=== PATIENT | male | born 1970 | race Caucasian/White ===

== ENCOUNTER → 2016-08-07 | Outpatient (CLI) | payer OTHER ==
[2016-08-07 12:10] LABS: CH 31.5; CHCM 35.9; HCT 45.7 % (39.0-53.0); HDW 3.12; HGB 15.9 gm/dL (13.0-17.5); MCH 30.6 pg (25.0-35.0); MCHC 34.7 g/dL (31.0-37.0); MCV 88.3 fL (80.0-100.0); Mean Platelet Volume 7.4; RBC 5.17 m/uL (4.30-5.90); RDW 13.5 % (11.5-15.5); WBC 11.1 k/uL (3.8-10.6)
[2016-08-07 12:40] LABS: Anion Gap 15 mmol/L; Blood Urea Nitrogen 8 mg/dL (9-20); Carbon Dioxide 27 mmol/L (22-30); Chloride 100 mmol/L (98-107); Non-African American GFR(MDRD) >60 (>60 ml/min/1.73 sqM); Potassium 3.7 mmol/L (3.5-5.1); Sodium 142 mmol/L (137-145)
== END | disposition home or self-care (01) ==
LOC: LABWHC1 11:40
PROVIDERS: ATTEND Internal Medicine Cardiovascular Disease
DX: R60.0 Localized edema (principal)
CPT/HCPCS: 36415; 80051; 82040; 82565; 83880; 84520; 85027

== ENCOUNTER 2016-10-15 08:39 | Observation (INO) | payer OTHER ==
[2016-10-15] MEDS ORDERED: SODIUM CHLORIDE 0.9% 1,000 ML IV ONE ×2 (09:48→12:31)
[2016-10-15 10:21] LABS: Basophils # (A) 0.1 k/uL (0-0.2); Basophils % (A) 1 %; CH 31.3; Eosinophils # (A) 0.1 k/uL (0-0.7); Eosinophils % (A) 1 %; HCT 40.4 % (39.0-53.0); HDW 2.94; HGB 13.9 gm/dL (13.0-17.5); Luc # (Auto) 0.08; Luc % (Auto) 1; Lymphocytes # (A) 1.9 k/uL (1.0-4.8); Lymphocytes % (A) 20 %; MCHC 34.5 g/dL (31.0-37.0); MCV 89.8 fL (80.0-100.0); Mean Platelet Volume 7.9; Monocytes # (A) 0.4 k/uL (0-1.0); Monocytes % (A) 4 %; Neutrophils # (A) 6.6 k/uL (1.3-7.7); Neutrophils % (A) 72 %; RDW 13.8 % (11.5-15.5); WBC 9.1 k/uL (3.8-10.6); WBC (Perox) 9.22
[2016-10-15 10:33] LABS: Glucose,Whole Blood 142 mg/dL (75-99)
[2016-10-15 10:34] LABS: ALT 38 U/L (21-72); AST 24 U/L (17-59); Alkaline Phosphatase 75 U/L (38-126); Anion Gap 7 mmol/L; Blood Urea Nitrogen 11 mg/dL (9-20); Calcium 8.9 mg/dL (8.4-10.2); Carbon Dioxide 31 mmol/L (22-30); Chloride 102 mmol/L (98-107); Glucose 152 mg/dL (74-99); Non-African American GFR(MDRD) >60 (>60 ml/min/1.73 sqM); Potassium 4.4 mmol/L (3.5-5.1); Sodium 140 mmol/L (137-145); Total Protein 6.8 g/dL (6.3-8.2)
[2016-10-15 10:36] LABS: Prothrombin Time 10.3 sec (9.0-12.0)
[2016-10-15 10:37] LABS: Partial Thromboplastin Time 22.4 sec (22.0-30.0)
--- NOTE | 2016-10-15 10:42 | ED ---
General Adult HPI <Lucas Cantu - Last Filed: 10/15/16 12:14> - General Source: patient, RN notes reviewed Mode of arrival: ambulatory Limitations: no limitations, altered mental status <Mark Feliz - Last Filed: 10/15/16 12:31> - General Chief complaint: Altered Mental Status Stated complaint: alter mental status Time Seen by Provider: 10/15/16 09:41 - History of Present Illness Initial comments: Patient is a 46-year-old male who presents emergency room today with multiple complaints. He does admit that he's had swelling to his lower extremities over the last few days. States this morning woke up and felt somewhat disoriented. States he felt lightheaded and dizzy. States he had numbness and tingling going to the left arm and hand. States he is experiencing some chest discomfort that he describes as sharp. Also admits to headache located in the front of his head and describes it as pressure. Patient states his symptoms were present when he woke up this morning along with feeling like is slurring some of his words. Family at bedside states not acting like himself. States symptoms have been constant over the last 2 hours. Denies any other complaints. Patient denies any recent fever, chills, shortness of breath, back pain, abdominal pain, nausea or vomiting, dysuria or hematuria, constipation or diarrhea, headaches or visual changes, or any other complaints. (Mark Feliz) - Related Data Home Medications Medication Instructions Recorded Confirmed Metoprolol Tartrate [Lopressor] 50 mg PO BID 11/15/14 10/15/16 NIFEdipine [NIFEdipine ER] 60 mg PO DAILY 11/15/14 10/15/16 Nitroglycerin Sl Tabs [Nitrostat] 0.4 mg SL DAILY PRN 11/15/14 10/15/16 Potassium Chloride [Klor-Con 10] 10 meq PO DAILY 11/15/14 10/15/16 metFORMIN HCL [metFORMIN HCL ER] 1,000 mg PO DAILY 11/15/14 10/15/16 Gabapentin [Neurontin] 900 mg PO TID 11/16/14 10/15/16 ALPRAZolam [Xanax] 0.5 mg PO BID 10/15/16 10/15/16 ARIPiprazole [Abilify] 5 mg PO DAILY 10/15/16 10/15/16 Furosemide [Lasix] 40 mg PO DAILY 10/15/16 10/15/16 HYDROcodone/APAP 7.5-325MG [[facility] 1 tab PO TID PRN 10/15/16 10/15/16 7.5-325] Hydrochlorothiazide [Hydrodiuril] 25 mg PO DAILY 10/15/16 10/15/16 Insulin Glargine [Lantus] 20 unit SQ HS 10/15/16 10/15/16 Losartan [Cozaar] 50 mg PO DAILY 10/15/16 10/15/16 Venlafaxine HCl [Effexor XR] 300 mg PO DAILY 10/15/16 10/15/16 Allergies Allergy/AdvReac Type Severity Reaction Status Date / Time duloxetine HCl Allergy Unknown Verified 10/15/16 10:32 [From [facility]] Review of Systems ROS Other: All systems not noted in ROS Statement are negative. <Lucas Cantu - Last Filed: 10/15/16 12:14> ROS Other: All systems not noted in ROS Statement are negative. <Mark Feliz - Last Filed: 10/15/16 12:31> ROS Statement: Those systems with pertinent positive or pertinent negative responses have been documented in the HPI. Past Medical History Past Medical History: Diabetes Mellitus, Hypertension Additional Past Medical History / Comment(s): aortic anyeurism, arthritis and degenerative issues in hips and kneees - see dr jurado for pain management, degenerative disc disease with chronic pain in lower back, sob with exertion, fatty liver, neuropathy History of Any Multi-Drug Resistant Organisms: None Reported Past Surgical History: Cholecystectomy, Hernia Repair Past Anesthesia/Blood Transfusion Reactions: No Reported Reaction Past Psychological History: Anxiety, Depression Smoking Status: Never smoker Past Alcohol Use History: None Reported Past Drug Use History: None Reported - Past Family History Mother History Unknown: Yes Family Medical History: Congestive Heart Failure (CHF), Coronary Artery Disease (CAD) <Mark Feliz - Last Filed: 10/15/16 12:31> General Exam <Lucas Cantu - Last Filed: 10/15/16 12:14> Limitations: no limitations, altered mental status <Mark Feliz - Last Filed: 10/15/16 12:31> - General Exam Comments Initial Comments: General: The patient is awake and alert, in no distress, and does not appear acutely ill. Eye: Pupils are equal, round and reactive to light, extra-ocular movements are intact. No nystagmus. There is normal conjunctiva bilaterally. No signs of icterus. Ears, nose, mouth and throat: There are moist mucous membranes and no oral lesions. Neck: The neck is supple, there is no tenderness or JVD. Cardiovascular: There is a regular rate and rhythm. No murmur, rub or gallop is appreciated. Respiratory: Lungs are clear to auscultation, respirations are non-labored, breath sounds are equal. No wheezes, stridor, rales, or rhonchi. Gastrointestinal: Soft, non-distended, non-tender abdomen without masses or organomegaly noted. There is no rebound or guarding present. No CVA tenderness. Bowel sounds are unremarkable. Musculoskeletal: Normal ROM, no tenderness. Strength 5/5. Sensation intact. Pulses equal bilaterally 2+. Neurological: A&O x 3. CN II-XII intact, There are no obvious motor or sensory deficits. Coordination appears grossly intact. Speech is normal. Skin: Skin is warm and dry and no rashes or lesions are noted. Psychiatric: Cooperative, appropriate mood & affect, normal judgment. (Mark Feliz) Medical Decision Making - Lab Data Result diagrams: 10/15/16 10:00 10/15/16 10:00 <Lucas Cantu - Last Filed: 10/15/16 12:14> - Lab Data Result diagrams: 10/15/16 10:00 10/15/16 10:00 <Mark Feliz - Last Filed: 10/15/16 12:31> - Medical Decision Making Patient reevaluated by myself, Dr. Cantu. Patient has been drowsy since he woke this morning. Patient complains of slurred speech. There may be a questionable amount of minimal slurred speech. Patient does complain of pedal edema. Patient has +1 and lateral pedal edema. No calf tenderness. Patient did have some mild chest discomfort earlier. No focal deficits on exam. Good strength throughout. Case discussed with Dr. adams, who will admit for Dr. Khan. Patient and family were updated. (Lucas Cantu) - Lab Data Lab Results 10/15/16 10/15/16 10/15/16 Range/Units 10:00 10:00 10:00 WBC 9.1 (3.8-10.6) k/uL RBC 4.50 (4.30-5.90) m/uL Hgb 13.9 (13.0-17.5) gm/dL Hct 40.4 (39.0-53.0) % MCV 89.8 (80.0-100.0) fL MCH 31.0 (25.0-35.0) pg MCHC 34.5 (31.0-37.0) g/dL RDW 13.8 (11.5-15.5) % Plt Count 184 (150-450) k/uL Neutrophils % 72 % Lymphocytes % 20 % Monocytes % 4 % Eosinophils % 1 % Basophils % 1 % Neutrophils # 6.6 (1.3-7.7) k/uL Lymphocytes # 1.9 (1.0-4.8) k/uL Monocytes # 0.4 (0-1.0) k/uL Eosinophils # 0.1 (0-0.7) k/uL Basophils # 0.1 (0-0.2) k/uL PT (9.0-12.0) sec INR (<1.1) APTT (22.0-30.0) sec D-Dimer (<0.60) mg/L FEU Sodium 140 (137-145) mmol/L Potassium 4.4 (3.5-5.1) mmol/L Chloride 102 (98-107) mmol/L Carbon Dioxide 31 H (22-30) mmol/L Anion Gap 7 mmol/L BUN 11 (9-20) mg/dL Creatinine 0.63 L (0.66-1.25) mg/dL Est GFR (MDRD) Af Amer >60 (>60 ml/min/1.73 sqM) Est GFR (MDRD) Non-Af >60 (>60 ml/min/1.73 sqM) Glucose 152 H (74-99) mg/dL POC Glucose (mg/dL) (75-99) mg/dL POC Glu [facility] ID Calcium 8.9 (8.4-10.2) mg/dL Total Bilirubin 1.0 (0.2-1.3) mg/dL AST 24 (17-59) U/L ALT 38 (21-72) U/L Alkaline Phosphatase 75 (38-126) U/L Ammonia (<30) umol/L Total Creatine Kinase 31 L (55-170) U/L CK-MB (CK-2) <0.2 (0.0-2.4) ng/mL CK-MB (CK-2) Rel Index Troponin I <0.012 (0.000-0.034) ng/mL Total Protein 6.8 (6.3-8.2) g/dL Albumin 3.9 (3.5-5.0) g/dL Urine Color Urine Appearance (Clear) Urine pH (5.0-8.0) Ur Specific Rohwer (1.001-1.035) Urine Protein (Negative) Urine Glucose (UA) (Negative) Urine Ketones (Negative) Urine Blood (Negative) Urine Nitrite (Negative) Urine Bilirubin (Negative) Urine Urobilinogen (<2.0) mg/dL Ur Leukocyte Esterase (Negative) 10/15/16 10/15/16 10/15/16 Range/Units 10:00 10:00 10:32 WBC (3.8-10.6) k/uL RBC (4.30-5.90) m/uL Hgb (13.0-17.5) gm/dL Hct (39.0-53.0) % MCV (80.0-100.0) fL MCH (25.0-35.0) pg MCHC (31.0-37.0) g/dL RDW (11.5-15.5) % Plt Count (150-450) k/uL Neutrophils % % Lymphocytes % % Monocytes % % Eosinophils % % Basophils % % Neutrophils # (1.3-7.7) k/uL Lymphocytes # (1.0-4.8) k/uL Monocytes # (0-1.0) k/uL Eosinophils # (0-0.7) k/uL Basophils # (0-0.2) k/uL PT 10.3 (9.0-12.0) sec INR 1.0 (<1.1) APTT 22.4 (22.0-30.0) sec D-Dimer 0.22 (<0.60) mg/L FEU Sodium (137-145) mmol/L Potassium (3.5-5.1) mmol/L Chloride (98-107) mmol/L Carbon Dioxide (22-30) mmol/L Anion Gap mmol/L BUN (9-20) mg/dL Creatinine (0.66-1.25) mg/dL Est GFR (MDRD) Af Amer (>60 ml/min/1.73 sqM) Est GFR (MDRD) Non-Af (>60 ml/min/1.73 sqM) Glucose (74-99) mg/dL POC Glucose (mg/dL) 142 H (75-99) mg/dL POC Glu [facility] ID [facility] Calcium (8.4-10.2) mg/dL Total Bilirubin (0.2-1.3) mg/dL AST (17-59) U/L ALT (21-72) U/L Alkaline Phosphatase (38-126) U/L Ammonia 25 (<30) umol/L Total Creatine Kinase (55-170) U/L CK-MB (CK-2) (0.0-2.4) ng/mL CK-MB (CK-2) Rel Index Troponin I (0.000-0.034) ng/mL Total Protein (6.3-8.2) g/dL Albumin (3.5-5.0) g/dL Urine Color Urine Appearance (Clear) Urine pH (5.0-8.0) Ur Specific Rohwer (1.001-1.035) Urine Protein (Negative) Urine Glucose (UA) (Negative) Urine Ketones (Negative) Urine Blood (Negative) Urine Nitrite (Negative) Urine Bilirubin (Negative) Urine Urobilinogen (<2.0) mg/dL Ur Leukocyte Esterase (Negative) 10/15/16 Range/Units 11:50 WBC (3.8-10.6) k/uL RBC (4.30-5.90) m/uL Hgb (13.0-17.5) gm/dL Hct (39.0-53.0) % MCV (80.0-100.0) fL MCH (25.0-35.0) pg MCHC (31.0-37.0) g/dL RDW (11.5-15.5) % Plt Count (150-450) k/uL Neutrophils % % Lymphocytes % % Monocytes % % Eosinophils % % Basophils % % Neutrophils # (1.3-7.7) k/uL Lymphocytes # (1.0-4.8) k/uL Monocytes # (0-1.0) k/uL Eosinophils # (0-0.7) k/uL Basophils # (0-0.2) k/uL PT (9.0-12.0) sec INR (<1.1) APTT (22.0-30.0) sec D-Dimer (<0.60) mg/L FEU Sodium (137-145) mmol/L Potassium (3.5-5.1) mmol/L Chloride (98-107) mmol/L Carbon Dioxide (22-30) mmol/L Anion Gap mmol/L BUN (9-20) mg/dL Creatinine (0.66-1.25) mg/dL Est GFR (MDRD) Af Amer (>60 ml/min/1.73 sqM) Est GFR (MDRD) Non-Af (>60 ml/min/1.73 sqM) Glucose (74-99) mg/dL POC Glucose (mg/dL) (75-99) mg/dL POC Glu [facility] ID Calcium (8.4-10.2) mg/dL Total Bilirubin (0.2-1.3) mg/dL AST (17-59) U/L ALT (21-72) U/L Alkaline Phosphatase (38-126) U/L Ammonia (<30) umol/L Total Creatine Kinase (55-170) U/L CK-MB (CK-2) (0.0-2.4) ng/mL CK-MB (CK-2) Rel Index Troponin I (0.000-0.034) ng/mL Total Protein (6.3-8.2) g/dL Albumin (3.5-5.0) g/dL Urine Color Yellow Urine Appearance Clear (Clear) Urine pH 6.0 (5.0-8.0) Ur Specific Rohwer 1.015 (1.001-1.035) Urine Protein Negative (Negative) Urine Glucose (UA) Negative (Negative) Urine Ketones Negative (Negative) Urine Blood Negative (Negative) Urine Nitrite Negative (Negative) Urine Bilirubin Negative (Negative) Urine Urobilinogen <2.0 (<2.0) mg/dL Ur Leukocyte Esterase Negative (Negative) Disposition <Lucas Cantu - Last Filed: 10/15/16 12:14> Time of Disposition: 12:01 <Mark Feliz - Last Filed: 10/15/16 12:31> Clinical Impression: Slurred speech, Paresthesia, Leg edema, Chest pain Disposition: ADMITTED IP TO THIS HOSP Condition: Stable
[2016-10-15 10:45] LABS: Creatine Kinase 31 U/L (55-170)
--- NOTE | 2016-10-15 10:50 | CT ---
EXAMINATION TYPE: CT brain wo con DATE OF EXAM: 10/15/2016 10:45 AM COMPARISON: NONE INDICATION: Patient not feeling well, having altered mental status DLP: 1050.9 mGycm, Automated exposure control for dose reduction was used. CONTRAST: None CT of the brain is performed utilizing 3 mm thick sections through the posterior fossa and 3 mm thick sections through the remaining calvarium. Study is performed within 24 hours of arrival to the hosp [facility]. No abnormal hyperdensity is present to suggest an acute intracranial hemorrhage. No mass lesion is evident. No acute infarcts are evident. Ventricles and sulci are appropriate for the patient age. Paranasal sinuses and mastoid air cells within the [id number] are clear. IMPRESSIONS: 1. Normal CT Brain
[2016-10-15 10:57] LABS: Creatine Kinase MB <0.2 ng/mL (0.0-2.4); Troponin I <0.012 ng/mL (0.000-0.034)
--- NOTE | 2016-10-15 11:00 | XR ---
EXAMINATION TYPE: XR chest 2V DATE OF EXAM: 10/15/2016 10:50 AM COMPARISON: 11/15/2014 TECHNIQUE: PA and lateral views submitted. HISTORY: Altered mental status FINDINGS: The lungs are clear and there is no pneumothorax, pleural effusion, or focal pneumonia. Heart is en larged and there is interstitial prominence. Appears stable. IMPRESSION: 1. Cardiomegaly with no definite acute interval change..
[2016-10-15 12:03] LABS: Appearance,Urine Clear (Clear); Bilirubin,Urine Negative (Negative); Glucose,Urine (UA) Negative (Negative); Ketones,Urine Negative (Negative); Leukocyte Esterase,Urine Negative (Negative); Nitrite,Urine Negative (Negative); Protein,Urine Negative (Negative); Specific Gravity,Urine 1.015 (1.001-1.035); UA Billing (MACRO vs. MICRO) CHEM; Urobilinogen,Urine <2.0 mg/dL (<2.0)
[2016-10-15] MEDS ORDERED: NITROGLYCERIN SL TABS 0.4 MG TAB SUBLINGUAL PRN (12:31)
[2016-10-15] MEDS ORDERED: HYDROcodone/APAP 7.5-325MG 1 EACH TAB PO ONE (12:35)
--- NOTE | 2016-10-15 13:38 | US ---
EXAMINATION TYPE: US carotid duplex BILAT DATE OF EXAM: 10/15/2016 1:13 PM COMPARISON: No previous CLINICAL HISTORY: Stenosis. Slurred speech EXAM MEASUREMENTS: RIGHT: Peak Systolic Velocity (PSV) cm/sec ----- Right CCA: 75.4 ----- Right ICA: 68.1 ----- Right ECA: 57.8 ICA/CCA ratio: 0.9 RIGHT: End Diastole cm/sec ----- Right CCA: 13.8 ----- Right ICA: 25.3 ----- Right ECA: 9.9 LEFT: Peak Systolic Velocity (PSV) cm/sec ----- Left CCA: 62.7 ----- Left ICA: 56.1 ----- Left ECA: 73.4 ICA/CCA ratio: 0.9 LEFT: End Diastole cm/sec ----- Left CCA: 12.0 ----- Left ICA: 20.7 ----- Left ECA: 9.2 VERTEBRALS (direction of flow): Right Vertebral: Antegrade Left Vertebral: Antegrade Minimal plaque proximal right ICA, no elevated velocities, no significant stenosis IMPRESSION: 1. Minimal plaque with no significant hemodynamic stenosis bilaterally.
[2016-10-15 15:14] VITALS: RESP 18
[2016-10-15 15:51] LABS: Glucose,Whole Blood 110 mg/dL (75-99)
[2016-10-15] MEDS ORDERED: HYDROcodone/APAP 7.5-325MG 1 EACH TAB PO PRN (16:33)
[2016-10-15 16:41] LABS: Creatine Kinase 33 U/L (55-170)
[2016-10-15 16:55] LABS: Glucose,Whole Blood 157 mg/dL (75-99)
[2016-10-15 16:55] LABS: Creatine Kinase MB <0.2 ng/mL (0.0-2.4); Troponin I <0.012 ng/mL (0.000-0.034)
--- NOTE | 2016-10-15 18:33 | CONS ---
DATE OF CONSULTATION: 10/15/2016 CHIEF COMPLAINT: Dysarthria. HISTORY OF PRESENT ILLNESS: The patient is a pleasant 46-year-old male who is being evaluated by the neurology service per the request of Dr. Patterson for dysarthria. The patient woke up this morning at approximately 7 a.m. and noticed that his left upper extremity was significantly swollen. He has been having significant lower extremity edema for the past several weeks. When he tried to get his family's attention regarding the swelling in his left arm, it was noticed that his speech was significantly slurred. He denies having any word-finding difficulties. He was also complaining of dizziness which he describes as a lightheaded sensation. He was also having some shortness of breath and some chest pain. The patient also states that he was having a headache this morning, which has resolved at this time. A CT scan of the brain was done in the emergency room which was normal. His carotid Doppler showed no hemodynamically significant stenosis. I did review his laboratory workup, which showed a normal CBC, INR, D-dimer, cardiac enzymes, urinalysis, and comprehensive metabolic profile except for mild hyperglycemia at 152. The patient does have a history of diabetes and is on insulin and metformin. Regarding his lower extremity edema, he states that he did see his family physician, who started him on diuretics. In reviewing his home medications, he is on Neurontin 900 mg 3 times daily. He takes this for his peripheral polyneuropathy pain and has been on Neurontin for approximately 2 years now. PAST MEDICAL HISTORY: 1. Diabetes. 2. Hypertension. 3. History of aortic aneurysm. 4. Arthritis. 5. Degenerative disc disease. 6. Chronic lumbago. 7. Depression. 8. Anxiety disorder. 9. History of hernia repair. 10. Cholecystectomy. SOCIAL HISTORY: He denies any tobacco, alcohol or drug use. FAMILY HISTORY: Positive for heart disease. HOME MEDICATIONS: Reviewed in the chart. ALLERGIES: CYMBALTA. REVIEW OF SYSTEMS: CONSTITUTIONAL: Positive for fatigue. EYES: Negative. ENT: Negative. CARDIOVASCULAR: As mentioned above. RESPIRATORY: As mentioned above. NEUROLOGICAL: As mentioned above. GASTROINTESTINAL: Negative. GENITOURINARY: Negative. MUSCULOSKELETAL: As mentioned above. PSYCHIATRIC: Positive for history of depression and anxiety disorder. DERMATOLOGICAL: Negative. ENDOCRINE: Positive for diabetes. PHYSICAL EXAM: Vital signs show a temperature of 97.0, pulse 62, respiration 18, blood pressure 115/72. GENERAL APPEARANCE: The patient is a mildly obese male who appears to be in no acute distress. HEENT: Normocephalic, atraumatic. No facial asymmetry is seen. Neck is supple with no masses felt. CARDIOVASCULAR: Regular rate and rhythm. ABDOMEN: Nontender, nondistended. Extremities showed edema in bilateral lower extremities, left more than right. No clubbing is seen. NEUROLOGICAL EXAM: The patient is alert, aware and oriented x3. Speech and language are normal. Strength is full in all 4 extremities. Sensory exam showed diminished light touch sensation in bilateral distal lower extremities. No pronator drift is seen. No tremors or seizure-like activity is noticed. No facial asymmetry is seen on cranial nerve testing. IMPRESSION: 1. Dysarthria, resolved. 2. Edema. 3. Sensory deficit. 4. Peripheral polyneuropathy. 5. Atypical chest pain. 6. Shortness of breath, resolved. 7. Chronic pain syndrome. RECOMMENDATION: The patient's dysarthria is not felt to be due to any ischemic etiology. The patient has been having significant edema in the lower extremity and more recently had severe edema in the left upper extremity, which has significantly improved. In reviewing his home medications, he is on Neurontin at a significantly higher dose, and this could be contributing to his edema. I do recommend weaning off of Neurontin and possibly trying Lyrica at a lower dose. The patient is ALLERGIC TO CYMBALTA. Lyrica can also cause peripheral edema, but we may be able to establish good neuropathic pain control at a lower dose. This will be addressed further in the outpatient clinic. I will order a 2-D echocardiogram to rule out any cardiac etiologies for his edema, especially with his family history of congestive heart failure. Continue the rest of your current workup and management. I will continue to follow with you. Further recommendations to follow. Thank you for allowing me to participate in the care of your patient. If you have any questions, please call free to contact me.
[2016-10-15] MEDS: METOPROLOL TARTRATE 50 MG TAB PO SCH (20:15)
[2016-10-15] MEDS: ALPRAZolam 0.5 MG TAB PO SCH (20:16)
[2016-10-15] MEDS: GABAPENTIN 300 MG CAP PO SCH (20:16)
[2016-10-15 20:43] LABS: Glucose,Whole Blood 116 mg/dL (75-99)
[2016-10-15] MEDS ORDERED: INSULIN GLARGINE 100 UNIT/ML 10 ML VIAL SQ SCH (21:00)
[2016-10-15 23:19] LABS: Creatine Kinase 38 U/L (55-170)
[2016-10-15 23:32] LABS: Creatine Kinase MB <0.2 ng/mL (0.0-2.4); Troponin I <0.012 ng/mL (0.000-0.034)
[2016-10-16] MEDS ORDERED: HYDROcodone/APAP 7.5-325MG 1 EACH TAB ONE (04:17)
[2016-10-16 05:41] LABS: Glucose,Whole Blood 107 mg/dL (75-99)
[2016-10-16 05:57] LABS: Cholesterol 175 mg/dL (<200); HDL Cholesterol 32 mg/dL (40-60); Triglycerides 317 mg/dL (<150)
--- NOTE | 2016-10-16 06:59 | HP ---
DATE OF ADMISSION: 10/15/2016 PRESENTING COMPLAINT: Slurred speech, altered vision. HISTORY OF PRESENTING COMPLAINT: This is a pleasant 46-year-old patient of Dr. Khan. Chronic stable medical conditions include diabetes mellitus type 2, hypertension, osteoarthritis, fatty liver, peripheral neuropathy some anxiety and depression. Patient does get swelling of the arms and legs off and on, but was unusual this morning that patient's balance went off and speech became garbled. The patient's vision changed. This is in addition to some swelling of the legs and arms, but like stated before the patient does occasionally get swelling of the arms and legs. Hence, the patient decided to come in. Patient speech since then has improved. Vision since then has improved. Balance is actually getting better. REVIEW OF SYSTEMS: CONSTITUTIONAL: Tired. HEENT: As above. CARDIOVASCULAR: None. GASTROINTESTINAL: None. GENITOURINARY: None. MUSCULOSKELETAL: Aches and pains in the joints. DERMATOLOGICAL: None. HEMATOLOGICAL: None. LYMPHATIC: None. PSYCHIATRY: Anxious. NEUROLOGICAL: Peripheral neuropathy. PAST MEDICAL HISTORY: Diabetes mellitus type 2, hypertension, osteoarthritis, abdominal aortic aneurysm 4.2 cm, fatty liver, peripheral neuropathy, abdominal hernia, anxiety, depression. PAST SURGICAL HISTORY: Cholecystectomy, hernia repair, left inguinal hernia repair, myringotomies. SOCIAL HISTORY: The patient lives with his mother, unemployed right now. Patient started smoking in his 20s. Quit in 1999. Alcohol none. FAMILY HISTORY: CHF, coronary artery disease. HOME MEDICATIONS: 1. Hydrochlorothiazide 25 mg a day. 2. Sparks 7.5, 1 tablet p.o. t.i.d. p.r.n. 3. Effexor XR 300 mg p.o. daily. 4. Cozaar 50 mg p.o. daily. 5. Lasix 40 mg p.o. daily. 6. Lantus 20 units subcu q.h.s. 7. Abilify 5 mg p.o. daily. 8. Xanax 0.5 p.o. b.i.d. 9. Metformin 1000 mg p.o. daily. 10. Potassium 10 mEq p.o. daily. 11. Nitrostat 0.4 sublingual q.5 p.r.n. 12. Nifedipine ER 60 mg p.o. daily. 13. Lopressor 50 mg p.o. b.i.d. 14. Neurontin 900 mg p.o. t.i.d. ALLERGIES TO CYMBALTA. On examination, temperature 97.2, pulse 54, respirations 16, blood pressure 120/80, pulse ox 96% on room air. GENERAL APPEARANCE: Well built, BMI of 42.3. Sitting up, not in distress. EYES: Pupils equal. Conjunctivae normal. HEENT: External appearance of nose and ears normal. Oral cavity normal. NECK: JVD not raised. Mass not palpable. RESPIRATORY: Effort normal. Lungs are clear. CARDIOVASCULAR: First and second sounds normal. No edema. ABDOMEN: Soft, nontender. Liver and spleen not palpable. LYMPHATIC: No lymph node palpable in neck or axillae. PSYCHIATRY: Alert and oriented x3. Mood and affect normal. NEUROLOGICAL: Pupils equal. Cranial nerves grossly intact. Power and sensation grossly intact. Patient has no signs of dysdiadochokinesia or pass pointing. INVESTIGATIONS: White count 9.1, hemoglobin 13.9. Potassium 4.4. BUN 11, creatinine 0.63, troponin less than 0.012. CT scan of the brain reported as normal. Carotid Doppler, minimal block. ASSESSMENT: 1. This is a patient who presents with acute slurring of speech, change in vision, poor balance. This could be a cerebellar transient ischemic attack in the posterior circulation. 2. Swelling of the lower extremities, hand. This well maybe could be side effect of the hefty dose of Neurontin the patient takes. 3. Diabetes mellitus type 2 with peripheral neuropathy. 4. Essential hypertension. 5. Primary osteoarthritis in multiple joints, bilateral. 6. Morbid obesity, body mass index 42.3. 7. Fatty liver. 8. Anxiety depression, not otherwise specified. PLAN: Patient's home medications are resumed. Neurological work-up in place including neuro checks. We will also order a 2-D echocardiogram. I think we will have to cut back on the dose of Neurontin to help better with the swelling. Neurology is also consulted.
[2016-10-16] MEDS ORDERED: ASPIRIN 325 MG TAB PO SCH (09:00)
[2016-10-16] MEDS ORDERED: FUROSEMIDE 40 MG TAB PO SCH (09:00)
[2016-10-16] MEDS ORDERED: HYDROCHLOROTHIAZIDE 25 MG TAB PO SCH (09:00)
[2016-10-16] MEDS ORDERED: metFORMIN 500 MG TAB PO SCH (09:00)
[2016-10-16] MEDS ORDERED: LOSARTAN 50 MG TAB PO SCH (09:00)
[2016-10-16] MEDS ORDERED: VENLAFAXINE HCL ER 150 MG CAP PO SCH (09:00)
[2016-10-16] MEDS ORDERED: POTASSIUM CHLORIDE ER 10 MEQ TAB.ER.PRT PO SCH (09:00)
[2016-10-16] MEDS ORDERED: ARIPiprazole 5 MG TAB PO SCH (09:00)
--- NOTE | 2016-10-16 09:43 | ECHOF ---
Referral Reason:shortness of breath, edema MEASUREMENTS -------- HEIGHT: 180.3 cm WEIGHT: 142.4 kg BP: 118/80 RVIDd: 3.9 cm (< 3.3) IVSd: 1.5 cm (0.6 - 1.1) LVIDd: 4.3 cm (3.9 - 5.3) LVPWd: 1.9 cm (0.6 - 1.1) IVSs: 2.5 cm LVIDs: 1.3 cm LVPWs: 1.8 cm Ao Diam: 3.6 cm (2.0 - 3.7) AV Cusp: 2.4 cm (1.5 - 2.6) LA Diam: 3.6 cm (2.7 - 3.8) MV EXCURSION: 15.228 mm (> 18.000) MV EF SLOPE: 103 mm/s (70 - 150) MV E Erik: 1.07 m/s MV DecT: 193 ms MV A Erik: 0.79 m/s MV E/A Ratio: 1.35 RAP: 5.00 mmHg RVSP: 11.07 mmHg FINDINGS -------- Sinus rhythm. This was a technically difficult study with suboptimal views. There is moderate concentric left ventricular hypertrophy. Overall left ventricular systolic function is normal with, an EF between 55 - 60 %. The right ventricle is mild to moderately enlarged. The left atrium is normal in size. The right atrium is normal in size. 1.5mg of Definity was utilized for enhancement of images The aortic valve is trileaflet, and appears structurally normal. No aortic stenosis or regurgitation. The mitral valve leaflets are mildly thickened. There is trace mitral regurgitation. Trace tricuspid regurgitation present. The right ventricular systolic pressure, as measured by Doppler, is 11.07mmHg. Pulmonic valve appears structurally normal. The aortic root size is normal. The pericardium is normal. CONCLUSIONS -------- 1. Sinus rhythm. 2. The mitral valve leaflets are mildly thickened. 3. There is trace mitral regurgitation. 4. Trace tricuspid regurgitation present. 5. The right ventricular systolic pressure, as measured by Doppler, is 11.07mmHg. 6. Pulmonic valve appears structurally normal. 7. The aortic root size is normal. 8. The pericardium is normal. 9. This was a technically difficult study with suboptimal views. 10. There is moderate concentric left ventricular hypertrophy. 11. Overall left ventricular systolic function is normal with, an EF between 55 - 60 %. 12. The right ventricle is mild to moderately enlarged. 13. The left atrium is normal in size. 14. The right atrium is normal in size. 15. 1.5mg of Definity was utilized for enhancement of images 16. The aortic valve is trileaflet, and appears structurally normal. No aortic stenosis or regurgitation. THREAD CHECKER: Queenie Moreno RDCS
[2016-10-16] MEDS: ALPRAZolam 0.5 MG TAB PO SCH (10:02)
[2016-10-16] MEDS: GABAPENTIN 300 MG CAP PO SCH (10:02)
[2016-10-16] MEDS: METOPROLOL TARTRATE 50 MG TAB PO SCH (10:03)
[2016-10-16 11:52] LABS: Glucose,Whole Blood 145 mg/dL (75-99)
[2016-10-16 12:14] VITALS: BP 122/79; PULSE 56; TEMP 97.4
--- NOTE | 2016-10-16 14:32 | P.PN ---
Subjective Principal diagnosis: a pleasant 46-year-old male who is being followed by the neurology service for dysarthria. Patient also reported left upper and lower extremity edema. Due to dysarthria, patient was brought to [facility] for further evaluation. Computed tomography scan of the brain was done in the emergency room which was normal. Carotid Doppler showed no hemodynamically significant stenosis. His lab work was unremarkable. Patient does report having seen his family physician recently and was started on diuretics. Patient currently takes Neurontin 900 mg 3 times daily. This is not a new medication for him.at the time of my evaluation, patient is sitting up in bed resting comfortably and appears to be in no acute distress. Objective - Vital Signs Vital signs: Vital Signs Temp 97.4 F L 10/16/16 11:35 Pulse 56 L 10/16/16 11:35 Resp 18 10/16/16 11:35 BP 122/79 10/16/16 11:35 Pulse Ox 95 10/16/16 11:35 Intake & Output 10/15/16 10/16/16 10/16/16 18:59 06:59 18:59 Intake Total 240 240 Balance 240 240 Weight 145.3 kg 142.6 kg Intake: Oral 240 240 Other: Voiding Method Toilet Toilet # Voids 2 - Exam PHYSICAL EXAM: GENERAL APPEARANCE: Patient is a well-developed, male who appears to be in no acute distress. HEENT: Normocephalic, atraumatic, no facial asymmetry is seen. Neck is supple with no masses felt. CARDIOVASCULAR: Regular rate and rhythm. ABDOMEN: Nontender, nondistended. EXTREMITIES: Show mild left-sided edema or clubbing. NEUROLOGICAL EXAM: Patient is awake, alert, and oriented 3. Speech and language are normal. Strength is full in all 4 extremities.sensory exam is diminished to light touch in bilateral distal lower extremities. No facial asymmetry is seen on cranial nerve testing. No tremors or seizure-like activity is noted. - Labs CBC & Chem 7: 10/15/16 10:00 10/15/16 10:00 Labs: Abnormal Lab Results - Last 24 Hours (Table) 10/15/16 10/15/16 10/15/16 Range/Units 15:41 15:50 16:54 POC Glucose (mg/dL) 110 H 157 H (75-99) mg/dL Total Creatine Kinase 33 L (55-170) U/L 10/15/16 10/15/16 10/16/16 Range/Units 20:41 22:50 05:40 POC Glucose (mg/dL) 116 H 107 H (75-99) mg/dL Total Creatine Kinase 38 L (55-170) U/L 10/16/16 Range/Units 11:47 POC Glucose (mg/dL) 145 H (75-99) mg/dL Total Creatine Kinase (55-170) U/L Assessment and Plan Plan: Impression: 1. Dysarthria, resolved 2. Peripheral edema 3. Sensory deficit 4. Peripheral polyneuropathy 5. Chronic pain syndrome Recommendation: The patient's dysarthria has resolved. This is not felt to be due to any ischemic etiology. Patient's edema in the lower extremity and more recently in the upper extremity has significantly improved. Patient is currently on Neurontin 900 mg 3 times a day in the home setting. I do recommend weaning off Neurontin and possibly trying Lyrica at a lower dose. This can be done in the office setting. His 2-D echocardiogram revealed ejection fraction of 55-60%. Patient is stable from a neurology standpoint for discharge. We will follow the patient in the office setting as an outpatient. Please feel free to call with any questions or concerns. I performed an examination of the patient and discussed the management with the WRIST LINER. I have reviewed the WRI[facility]ER notes and agree with the findings and plan of care.
--- NOTE | 2016-10-16 14:34 | CONS ---
DATE OF CONSULTATION: Mr. Kamlesh Kerns is a 46-year-old obese gentleman who came into the hospital with some slurred speech after having taken an extensive dose of Neurontin and hydrocodone, and then complained of some sharp pains in the chest and I was asked to see him for any anginal-type picture. At the time of my evaluation, patient is absolutely asymptomatic. Denies any chest pain. He indicated to me that he may have taken extra dose of Neurontin and that may have made him sluggish and had some slurred speech and complained of some tingling in the arm. However, all of the work-up so far is negative. He is resting comfortably without symptoms. Apparently, he feels that when woke up this yesterday morning, he felt somewhat dizzy, disoriented, lightheaded, and then his family felt that his speech was somewhat slurred and they were concerned about it. All of these symptoms have resolved. He is resting comfortably without symptoms. PAST MEDICAL HISTORY: Obesity, hypertension, type 2 diabetes mellitus, stable abdominal aortic aneurysm for which he follows with his PCP. He also has degenerative joint disease and chronic pain syndrome and used to see Dr. Andrews. Medications at home include metoprolol tartrate 50 mg b.i.d., nifedipine 60 mg daily, potassium supplements, metformin, gabapentin, Xanax, Abilify, Lasix, hydrocodone, Lantus insulin, Cozaar and also hydrochlorothiazide. ALLERGIES: Allergic to see CYMBALTA. LABORATORY DATA: Suggests that the troponin levels are all normal. His echocardiogram revealed normal systolic function. This was a technically difficult study with patient being obese. Definity was used. There is no significant pulmonary hypertension. On examination, blood pressure is 122/70, pulse rate is 60 per minute. HEENT: Unremarkable. Fundus was not examined by me. Neck is supple. No JVD. I do not hear a carotid bruit. There is no thyromegaly. Heart exam reveals S1 and S2 heard normally with somewhat distant heart sounds. Lungs are clear. Abdomen is soft, nontender. Lower extremities reveal diminished pulses. No edema. Central nervous system is normal. EKG revealed sinus mechanism and is within normal limits. IMPRESSION: 1. Atypical chest pain. 2. Hypertension. 3. Type 2 diabetes. 4. Obesity. 5. Probably excessive dose of hydrocodone and Neurontin but these effects have resolved completely. RECOMMENDATIONS: I advised the patient that there is no evidence of any myocardial injury. EKGs are normal and his pain is atypical; however, given his risk factors, he should have a full work-up, which can be done as an outpatient. After discharge, I advised him to call my office to see me in the next 7 to 10 days or so and I will perform stress testing as an outpatient. Patient can be discharged on his current medications. Thank you very much for the consult.
--- NOTE | 2016-10-17 11:32 | DS ---
DATE OF ADMISSION: 10/15/2016 DATE OF DISCHARGE: 10/16/2016 FINAL DIAGNOSES: 1. Transient ischemic attack. 2. Swelling of the lower extremities, as side effect of dose of Neurontin. 3. Diabetes mellitus type 2 with peripheral neuropathy. 4. Essential hypertension. 5. Primary osteoarthritis in multiple joints, bilateral. 6. Morbid obesity, body mass index of 42.3. 7. Fatty liver. 8. Anxiety, depression, not otherwise specified. CONSULTATIONS: Dr. Moreno. HOSPITAL COURSE: This patient presented with slurred speech and poor balance, which recovered within 24 hours, felt to be TIA. The patient also had swelling of the lower extremities. The patient is taking a hefty dose of Neurontin 900 mg 3 times a day and this could well be a side effect side. This will be discussed with the patient. Dose of Neurontin has been cut back pain. Patient's 2-D echocardiogram showed preserved LV function and moderate concentric left ventricular hypertrophy. Patient's carotid Doppler did not show any stenosis. CT scan of the brain was normal. On examination, no neuro deficits. DISCHARGE MEDICATIONS: 1. Lopressor 50 mg p.o. b.i.d. 2. Nifedipine ER 60 mg p.o. daily. 3. Nitrostat 0.4 sublingual every 5 p.r.n. 4. Potassium 10 mEq p.o. daily. 5. Xanax 0.5 p.o. b.i.d. 6. Abilify 5 mg p.o. daily. 7. Lasix 40 mg p.o. daily. 8. [place] 7.5, 1 tablet p.o. t.i.d. p.r.n. 9. Lantus 20 units subcu at bedtime. 10. Cozaar 50 mg p.o. daily. 11. Effexor XR 300 mg daily. 12. Aspirin 81 mg p.o. daily. 13. Lipitor 20 mg p.o. daily. 14. Neurontin 600 mg p.o. t.i.d. decreased dose. 15. Metformin ER 30 mg p.o. b.i.d. FOLLOWUP: 1. Follow up with Dr. Milton Juarez in 10 days. 2. Follow up Dr. Tono Khan in 1 week. 3. Follow up with Dr. Moreno in 1 to 2 weeks. 4. Followup with Dr. Clifton in 1 week. Discharge planning more than 35 minutes.
== END 2016-10-16 16:11 | disposition home or self-care (01) ==
LOC: EC 08:39 → 6SEL 13:51
PROVIDERS: ADMIT Hospitalist; ATTEND Hospitalist
DX: G45.9 Transient cerebral ischemic attack, unspecified (principal); E11.42 Type 2 diabetes mellitus with diabetic polyneuropathy; E11.65 Type 2 diabetes mellitus with hyperglycemia; E66.01 Morbid (severe) obesity due to excess calories; Z68.41 Body mass index [BMI] 40.0-44.9, adult; F17.200 Nicotine dependence, unspecified, uncomplicated; F41.9 Anxiety disorder, unspecified; F32.9 Major depressive disorder, single episode, unspecified; G89.4 Chronic pain syndrome; I11.9 Hypertensive heart disease without heart failure; K76.0 Fatty (change of) liver, not elsewhere classified; M15.9 Polyosteoarthritis, unspecified; Z79.4 Long term (current) use of insulin; Z79.84 Long term (current) use of oral hypoglycemic drugs; Z79.899 Other long term (current) drug therapy; Z88.8 Allergy status to other drugs, medicaments and biological substances; M54.5 Low back pain; I71.4 Abdominal aortic aneurysm, without rupture; R06.02 Shortness of breath; R07.89 Other chest pain; R47.1 Dysarthria and anarthria; R60.0 Localized edema
CPT/HCPCS: 99285 ×2; 96360 ×2; 36415; 93005; 85379; 83880; 80061; 80053; 82140; 82550; 82553; 84484; 85025; 85610; 85730; 81003; 71020; 93880; 70450; G0378 ×2; C8929; Q9957; 93306

== ENCOUNTER 2021-07-29 23:00 | Emergency (ER) | payer MEDICARE, OTHER ==
[2021-07-29] MEDS ORDERED: ACETAMINOPHEN TAB 500 MG TAB PO STA (23:47)
[2021-07-29] MEDS ORDERED: IBUPROFEN 800 MG TAB PO STA (23:47)
[2021-07-30] MEDS ORDERED: SODIUM CHLORIDE 0.9% 1,000 ML IV ONE (01:01)
[2021-07-30 01:51] LABS: Basophils % (A) 1 %; Eosinophils % (A) 1 %; HCT 38.3 % (39.0-53.0); HGB 12.6 gm/dL (13.0-17.5); Lymphocytes # (A) 0.5 k/uL (1.0-4.8); Lymphocytes % (A) 11 %; MCH 29.2 pg (25.0-35.0); MCHC 32.9 g/dL (31.0-37.0); MCV 88.7 fL (80.0-100.0); Monocytes # (A) 0.5 k/uL (0-1.0); Monocytes % (A) 11 %; Neutrophils # (A) 3.2 k/uL (1.3-7.7); Neutrophils % (A) 75 %; Platelet Count 132 k/uL (150-450); RBC 4.32 m/uL (4.30-5.90); RDW 13.8 % (11.5-15.5); WBC 4.3 k/uL (3.8-10.6)
[2021-07-30 02:05] LABS: ALT 33 U/L (4-49); AST 77 U/L (17-59); African American GFR (CKD) >90 (>60 ml/min/1.73 sqM); Albumin 4.3 g/dL (3.5-5.0); Alkaline Phosphatase 61 U/L (38-126); Anion Gap 7 mmol/L; Blood Urea Nitrogen 12 mg/dL (9-20); Calcium 8.7 mg/dL (8.4-10.2); Carbon Dioxide 28 mmol/L (22-30); Chloride 102 mmol/L (98-107); Glucose 97 mg/dL (74-99); Lipase 10 U/L (23-300); Non-African American GFR(CKD) >90 (>60 ml/min/1.73 sqM); Potassium 3.9 mmol/L (3.5-5.1); Sodium 137 mmol/L (137-145); Total Protein 7.4 g/dL (6.3-8.2)
--- NOTE | 2021-07-30 02:56 | CT ---
EXAM: CT Abdomen and Pelvis With Intravenous Contrast CLINICAL HISTORY: ITS.REASON CT Reason: RLQ pain TECHNIQUE: Axial computed tomography images of the abdomen and pelvis with intravenous contrast. CTDI is 72.18 mGy and DLP is 3835 mGy-cm. This CT exam was performed using one or more of the following dose reduction techniques: automated exposure control, adjustment of the mA and/or kV according to patient size, and/or use of iterative reconstruction technique. COMPARISON: No relevant prior studies available. FINDINGS: Lung bases: Unremarkable. No mass. No consolidation. ABDOMEN: Liver: Mild fatty infiltration of the liver. The liver is mildly enlarged measuring 22.5 cm craniocaudad. No focal liver lesion is seen. Gallbladder and bile ducts: Previous cholecystectomy. No ductal dilation. Pancreas: Unremarkable. No mass. No ductal dilation. Spleen: Unremarkable. No splenomegaly. Adrenals: Unremarkable. No mass. Kidneys and ureters: Unremarkable. No solid mass. No hydronephrosis. Stomach and bowel: Unremarkable. No obstruction. No mucosal thickening. PELVIS: Appendix: The appendix is normal. Bowel loops are nondilated. No acute inflammatory changes are seen involving the bowel. Bladder: Unremarkable. No mass. Reproductive: Unremarkable as visualized. ABDOMEN and PELVIS: Intraperitoneal space: Unremarkable. No free air. No significant fluid collection. Bones/joints: Mild degenerative changes throughout the spine. No acute fracture or bone lesion is identified. No dislocation. Soft tissues: There is a 3.6 cm fat-containing umbilical hernia without signs of inflammation. Vasculature: The aorta is mildly calcified but nondilated. Lymph nodes: Unremarkable. No enlarged lymph nodes. IMPRESSION: 1. The appendix is normal. Bowel loops are nondilated. No acute inflammatory changes are seen involving the bowel. 2. There is a 3.6 cm fat-containing umbilical hernia without signs of inflammation. 3. Mild fatty infiltration of the liver. The liver is mildly enlarged measuring 22.5 cm craniocaudad. No focal liver lesion is seen.
--- NOTE | 2021-07-30 02:58 | ED ---
General Adult HPI - General Chief complaint: Fever Stated complaint: Fever, weakness Time Seen by Provider: 07/30/21 00:55 Source: patient Mode of arrival: ambulatory Limitations: no limitations - History of Present Illness Initial comments: 51 year-old male patient presents for evaluation of fever and chills that started this evening. States that his significant other felt how hot his head was and he came in for evaluation. He denies any cough, congestion, or sore throat. Denies any vomiting or diarrhea. States that he did start having abdominal pain yesterday. States his abdomen was tender to touch especially over the right lower quadrant. Denies constipation. He is passing gas. Denies urinary symptoms. Patient denies any recent rash, shortness of breath, chest pain, back pain, numbness, tingling, dizziness, weakness, hematuria, dysuria, urinary urgency, urinary frequency, headache, visual changes, or any other complaints. - Related Data Home Medications Medication Instructions Recorded Confirmed Metoprolol Tartrate [Lopressor] 50 mg PO BID 11/15/14 10/15/16 NIFEdipine [NIFEdipine ER] 60 mg PO DAILY 11/15/14 10/15/16 Nitroglycerin Sl Tabs [Nitrostat] 0.4 mg SL DAILY PRN 11/15/14 10/15/16 Potassium Chloride [Klor-Con 10 ER] 10 meq PO DAILY 11/15/14 10/15/16 ALPRAZolam [Xanax] 0.5 mg PO BID 10/15/16 10/15/16 ARIPiprazole [Abilify] 5 mg PO DAILY 10/15/16 10/15/16 Furosemide [Lasix] 40 mg PO DAILY 10/15/16 10/15/16 HYDROcodone/APAP 7.5-325MG [[place] 1 tab PO TID PRN 10/15/16 10/15/16 7.5-325] Insulin Glargine [Lantus Vial] 20 unit SQ HS 10/15/16 10/15/16 Losartan [Cozaar] 50 mg PO DAILY 10/15/16 10/15/16 Venlafaxine HCl [Effexor XR] 300 mg PO DAILY 10/15/16 10/15/16 Previous Rx's Medication Instructions Recorded Aspirin 81 mg PO DAILY #1 chewable 10/16/16 Atorvastatin Calcium [Lipitor] 20 mg PO DAILY #30 tab 10/16/16 Gabapentin [Neurontin] 600 mg PO TID cap 10/16/16 metFORMIN HCL [metFORMIN HCL ER] 1,000 mg PO BID #0 10/16/16 Allergies Allergy/AdvReac Type Severity Reaction Status Date / Time duloxetine HCl Allergy Unknown Verified 07/29/21 23:46 [From Cymbalta] Review of Systems ROS Statement: Those systems with pertinent positive or pertinent negative responses have been documented in the HPI. ROS Other: All systems not noted in ROS Statement are negative. Past Medical History Past Medical History: Diabetes Mellitus, Hypertension, Osteoarthritis (OA) Additional Past Medical History / Comment(s): IDDM type II, aortic aneuryism-4.25cm, arthritis and degenerative issues in hips and knees degenerative disc disease with chronic pain in lower back, sob with exertion, fatty liver, neuropathy bilateral hands and feet, abdominal hernia. History of Any Multi-Drug Resistant Organisms: None Reported Past Surgical History: Cholecystectomy, Hernia Repair Additional Past Surgical History / Comment(s): L inguinal hernia repair, myringotomies with tubes in ears Past Anesthesia/Blood Transfusion Reactions: No Reported Reaction, Motion Sickn ess Past Psychological History: Anxiety, Depression Smoking Status: Former smoker Past Alcohol Use History: None Reported Past Drug Use History: None Reported - Past Family History Father History Unknown: Yes Mother History Unknown: Yes Family Medical History: Congestive Heart Failure (CHF), Coronary Artery Disease (CAD) Additional Family Medical History / Comment(s): Mother is 67yrs old. General Exam Limitations: no limitations General appearance: alert, in no apparent distress, other (Physical well- developed, well-nourished adult male in no acute distress) ENT exam: Present: normal exam, normal oropharynx, mucous membranes moist Respiratory exam: Present: normal lung sounds bilaterally. Absent: respiratory distress, wheezes, rales, rhonchi, stridor Cardiovascular Exam: Present: regular rate, normal rhythm, normal heart sounds. Absent: systolic murmur, diastolic murmur, rubs, gallop, clicks GI/Abdominal exam: Present: soft, tenderness (Periumbilical, right lower quadrant), normal bowel sounds. Absent: distended, guarding, rebound, rigid Neurological exam: Present: alert, oriented X3, CN II-XII intact Psychiatric exam: Present: normal affect, normal mood Skin exam: Present: warm, dry, intact, normal color. Absent: rash Course Vital Signs 07/29/21 07/30/21 07/30/21 23:43 01:30 02:00 Temperature 103.1 F H Pulse Rate 107 H Respiratory 20 20 20 Rate Blood Pressure 165/90 130/80 129/77 O2 Sat by Pulse 94 L 92 L 91 L Oximetry 07/30/21 07/30/21 02:30 03:10 Temperature 100.9 F H Pulse Rate 87 Respiratory 18 18 Rate Blood Pressure 132/80 127/74 O2 Sat by Pulse 92 L 95 Oximetry Medical Decision Making - Medical Decision Making 51-year-old male patient presented to the emergency department today for evaluation of fever and chills. Also reporting abdominal pain. Physical examination did reveal periumbilical and right lower quadrant tenderness. Lungs are clear to auscultation. He did have elevated temperature upon arrival 103F. He did test positive for coronary did do labs white blood cell count was normal. Lactic acid negative. CT abdomen and pelvis did show an umbilical hernia with no obstruction or incarceration. He did meet criteria to receive monoclonal antibody infusion, he agreed to receive the infusion and did tolerate it without difficulty. He'll be discharged with supportive care and symptom instructions. He is instructed to follow-up with his primary care physician for recheck in 1-2 days. Return parameters were discussed in detail. He verbalizes understanding and agrees with this plan. My attending is Dr. Babcock. - Lab Data Result diagrams: 07/30/21 01:30 07/30/21 01:30 Lab Results 07/29/21 07/30/21 07/30/21 Range/Units 23:53 01:30 01:30 WBC 4.3 (3.8-10.6) k/uL RBC 4.32 (4.30-5.90) m/uL Hgb 12.6 L (13.0-17.5) gm/dL Hct 38.3 L (39.0-53.0) % MCV 88.7 (80.0-100.0) fL MCH 29.2 (25.0-35.0) pg MCHC 32.9 (31.0-37.0) g/dL RDW 13.8 (11.5-15.5) % Plt Count 132 L (150-450) k/uL MPV 9.0 Neutrophils % 75 % Lymphocytes % 11 % Monocytes % 11 % Eosinophils % 1 % Basophils % 1 % Neutrophils # 3.2 (1.3-7.7) k/uL Lymphocytes # 0.5 L (1.0-4.8) k/uL Monocytes # 0.5 (0-1.0) k/uL Eosinophils # 0.0 (0-0.7) k/uL Basophils # 0.0 (0-0.2) k/uL Sodium 137 (137-145) mmol/L Potassium 3.9 (3.5-5.1) mmol/L Chloride 102 (98-107) mmol/L Carbon Dioxide 28 (22-30) mmol/L Anion Gap 7 mmol/L BUN 12 (9-20) mg/dL Creatinine 0.70 (0.66-1.25) mg/dL Est GFR (CKD-EPI)AfAm >90 (>60 ml/min/1.73 sqM) Est GFR (CKD-EPI)NonAf >90 (>60 ml/min/1.73 sqM) Glucose 97 (74-99) mg/dL Plasma Lactic Acid [place] (0.7-2.0) mmol/L Calcium 8.7 (8.4-10.2) mg/dL Total Bilirubin 2.0 H (0.2-1.3) mg/dL AST 77 H (17-59) U/L ALT 33 (4-49) U/L Alkaline Phosphatase 61 (38-126) U/L Total Protein 7.4 (6.3-8.2) g/dL Albumin 4.3 (3.5-5.0) g/dL Lipase 10 L (23-300) U/L Coronavirus (PCR) Detected A (Not Detectd) 07/30/21 Range/Units 01:30 WBC (3.8-10.6) k/uL RBC (4.30-5.90) m/uL Hgb (13.0-17.5) gm/dL Hct (39.0-53.0) % MCV (80.0-100.0) fL MCH (25.0-35.0) pg MCHC (31.0-37.0) g/dL RDW (11.5-15.5) % Plt Count (150-450) k/uL MPV Neutrophils % % Lymphocytes % % Monocytes % % Eosinophils % % Basophils % % Neutrophils # (1.3-7.7) k/uL Lymphocytes # (1.0-4.8) k/uL Monocytes # (0-1.0) k/uL Eosinophils # (0-0.7) k/uL Basophils # (0-0.2) k/uL Sodium (137-145) mmol/L Potassium (3.5-5.1) mmol/L Chloride (98-107) mmol/L Carbon Dioxide (22-30) mmol/L Anion Gap mmol/L BUN (9-20) mg/dL Creatinine (0.66-1.25) mg/dL Est GFR (CKD-EPI)AfAm (>60 ml/min/1.73 sqM) Est GFR (CKD-EPI)NonAf (>60 ml/min/1.73 sqM) Glucose (74-99) mg/dL Plasma Lactic Acid [place] 1.2 (0.7-2.0) mmol/L Calcium (8.4-10.2) mg/dL Total Bilirubin (0.2-1.3) mg/dL AST (17-59) U/L ALT (4-49) U/L Alkaline Phosphatase (38-126) U/L Total Protein (6.3-8.2) g/dL Albumin (3.5-5.0) g/dL Lipase (23-300) U/L Coronavirus (PCR) (Not Detectd) - Radiology Data Radiology results: report reviewed, image reviewed CT abdomen and pelvis was obtained with contrast. Report was reviewed in its entirety. Impression by Dr. Gannon shows the appendix is normal. Bile loops of nondilated. No acute inflammatory changes are seen involving the bowel. There is a 3.6 cm fat-containing umbilical hernia without signs of inflammation. Mild fatty infiltration of the liver. Liver is markedly enlarged measuring 22.5 cran ial caudal. No focal liver lesion is seen. Disposition Clinical Impression: COVID-19, Umbilical hernia Disposition: HOME SELF-CARE Condition: Good Instructions (If sedation given, give patient instructions): Coronavirus Disease 2019 (COVID-19), Umbilical Hernia (ED) Additional Instructions: Tips to help you feel better: -Maintain adequate fluid intake - especially water. -Rest, you are healing your body will require extra sleep. -Eat even if you do not feel like it - broth, jello, toast are fine if you cannot eat full meals. -Take tylenol and motrin alternating (if you have no allergies or have not been instructed to avoid these medications) to help with body aches and fevers. -Obtain over the counter vitamin C, zinc, and vitamin D3. -Take medications as prescribed. Follow-up with your primary care physician for recheck in 1-2 days. Return for any new, worsening, or concerning symptoms. Is patient prescribed a controlled substance at d/c from ED?: No Referrals: Dale Saucedo MD [Primary Care Provider] - 1-2 days
[2021-07-30] MEDS ORDERED: SODIUM CHLORIDE 0.9% 50 ML IVPB ONE (03:15)
[2021-07-30] MEDS ORDERED: SOTROVIMAB (EUA) 500 MG in SODIUM CHLORIDE 0.9% 100 ML IVPB ONE (03:15)
[2021-07-30 05:27] VITALS: BP 134/74; PULSE 89; RESP 20; TEMP 99.9
== END 2021-07-30 05:00 | disposition home or self-care (01) ==
LOC: EC 23:00
DX: U07.1 COVID-19 (principal); K42.9 Umbilical hernia without obstruction or gangrene; E11.9 Type 2 diabetes mellitus without complications; I10 Essential (primary) hypertension; M19.90 Unspecified osteoarthritis, unspecified site; F41.9 Anxiety disorder, unspecified; F32.A Depression, unspecified; Z79.4 Long term (current) use of insulin; Z79.82 Long term (current) use of aspirin; Z79.84 Long term (current) use of oral hypoglycemic drugs; Z90.49 Acquired absence of other specified parts of digestive tract; Z87.891 Personal history of nicotine dependence
CPT/HCPCS: 99284; 96360; 96361; 36415; 80053; 83605; 83690; 85025; 87635; 74177; Q9967; Q0247

== ENCOUNTER 2022-01-13 05:46 | Day surgery (SDC) | payer MEDICARE ==
[2022-01-08 15:41] VITALS: BMI 41.5
[~2022-01-13 05:46] MED LIST: ACETAMINOPHEN TAB 500 MG TAB PO PRN; HEPARIN SODIUM,PORCINE/PF 5,000 UNIT/0.5 ML SYRINGE SQ PRN; ceFAZolin 3 GM in SODIUM CHLORIDE 0.9% 100 ML IVPB PRN
[2022-01-13] MEDS ORDERED: DEXAMETHASONE SOD PHOSPHATE 4 MG/ML 1 ML VIAL IV ONE (05:56)
[2022-01-13] MEDS ORDERED: ONDANSETRON 4 MG/2 ML VIAL IVP ONE (05:56)
[2022-01-13] MEDS ORDERED: LIDOCAINE 1% (10MG/ML) FOR IV START INTRADERMA PRN (05:56)
[2022-01-13] MEDS ORDERED: SCOPOLAMINE 1 MG/72 HR PATCH TRANSDERM ONE (05:56)
[2022-01-13] MEDS: LACTATED RINGERS 1,000 ML IV SCH ×2 (06:33→07:56)
[2022-01-13] MEDS ORDERED: METOCLOPRAMIDE 5 MG/ML 2 ML VIAL IVP PRN (07:00)
[2022-01-13] MEDS ORDERED: HYDROmorphone 0.5 MG/0.5 ML SYRINGE IVP PRN (07:00)
[2022-01-13 07:03] LABS: Glucose,Whole Blood 114 mg/dL (70-110)
[2022-01-13] MEDS ORDERED: MIDAZOLAM 2 MG/2 ML VIAL IVP ONE (07:16)
[2022-01-13] MEDS ORDERED: GLYCOPYRROLATE 0.2 MG/ML 2 ML VIAL ONE (07:52)
[2022-01-13] MEDS ORDERED: ROCURONIUM 10 MG/ML (5 ML VIAL) IV ONE (07:52)
[2022-01-13] MEDS ORDERED: LIDOCAINE 2% INJ 20 MG/ML (2 ML VIAL) ONE (07:52)
[2022-01-13] MEDS ORDERED: SUCCINYLCHOLINE CHLORIDE VIAL 200 MG/10 ML VIAL IV ONE (07:52)
[2022-01-13] MEDS ORDERED: ROPIVACAINE 5 MG/ML 30 ML VIAL ONE (07:52)
[2022-01-13] MEDS ORDERED: KETAMINE 10 MG/ML 20 ML VIAL ONE (07:52)
[2022-01-13] MEDS ORDERED: fentaNYL (PF) 50 MCG/ML 2 ML AMP ONE (07:52)
[2022-01-13] MEDS ORDERED: DEXAMETHASONE SOD PHOSPHATE 4 MG/ML 1 ML VIAL ONE (07:52)
[2022-01-13] MEDS ORDERED: NEOSTIGMINE 1 MG/ML 10 ML VIAL ONE (07:52)
[2022-01-13] MEDS ORDERED: PROPOFOL 10 MG/ML 20 ML VIAL IV ONE (07:52)
[2022-01-13] MEDS ORDERED: BUPIVACAIN-EPI 0.25%-1:200,000 30 ML VIAL SQ ONE ×2 (08:12→08:20)
--- NOTE | 2022-01-13 08:57 | P.GSHP ---
History of Present Illness H&P Date: 01/13/22 Chief Complaint: Umbilical hernia This 51-year-old male developed an umbilical hernia. Patient presents today for laparoscopic robotic-assisted repair. Past Medical History Past Medical History: Diabetes Mellitus, Hearing Disorder / Deafness, Hypertension, Liver Disease, Musculoskeletal Disorder, Osteoarthritis (OA) Additional Past Medical History / Comment(s): Hard of hearing, aortic aneuryism, degenerative issues in hips and knees, degenerative disc disease with chronic pain in lower back, sob with exertion, fatty liver, neuropathy bilateral hands and feet, abdominal hernia. History of Any Multi-Drug Resistant Organisms: None Reported Past Surgical History: Cholecystectomy, Ear Surgery, Hernia Repair Additional Past Surgical History / Comment(s): Left inguinal hernia repair, myringotomies with tubes in ears. Past Anesthesia/Blood Transfusion Reactions: No Reported Reaction, Motion Sickness Past Psychological History: Anxiety, Depression Smoking Status: Former smoker Past Alcohol Use History: None Reported Additional Past Alcohol Use History / Comment(s): Started smoking in his 's and quit in 1999. Past Drug Use History: None Reported - Past Family History Father History Unknown: Yes Family Medical History: No Reported History Mother History Unknown: Yes Family Medical History: Congestive Heart Failure (CHF), Coronary Artery Disease (CAD) Additional Family Medical History / Comment(s): Mother is 67yrs old. Medications and Allergies Home Medications Medication Instructions Recorded Confirmed Type Metoprolol Tartrate [Lopressor] 50 mg PO BID 11/15/14 01/13/22 History NIFEdipine [NIFEdipine ER] 60 mg PO DAILY 11/15/14 01/13/22 History Nitroglycerin Sl Tabs [Nitrostat] 0.4 mg SL DAILY PRN 11/15/14 01/13/22 History Potassium Chloride [Klor-Con 10 ER] 10 meq PO DAILY 11/15/14 01/13/22 History ALPRAZolam [Xanax] 0.5 mg PO BID 10/15/16 01/13/22 History ARIPiprazole [Abilify] 5 mg PO DAILY 10/15/16 01/13/22 History Furosemide [Lasix] 40 mg PO DAILY 10/15/16 01/13/22 History Losartan [Cozaar] 50 mg PO DAILY 10/15/16 01/13/22 History Venlafaxine HCl [Effexor XR] 300 mg PO DAILY 10/15/16 01/13/22 History Atorvastatin Calcium [Lipitor] 20 mg PO DAILY #30 tab 10/16/16 01/13/22 Rx Gabapentin [Neurontin] 600 mg PO TID cap 10/16/16 01/13/22 Rx metFORMIN HCL [metFORMIN HCL ER] 1,000 mg PO BID #0 10/16/16 01/13/22 Rx Pregabalin [Lyrica] 150 mg PO TID 01/08/22 01/13/22 History oxyCODONE-APAP 10-325MG [Percocet 1 tab PO TID PRN 01/08/22 01/13/22 History 10-325 mg] Allergies Allergy/AdvReac Type Severity Reaction Status Date / Time duloxetine HCl Allergy Unknown Verified 01/13/22 06:24 [From Cymbalta] Surgical - Exam Vital Signs Temp Pulse Resp BP Pulse Ox 97.4 F L 47 L 16 122/64 94 L 01/13/22 06:42 01/13/22 06:42 01/13/22 06:42 01/13/22 06:42 01/13/22 06:42 - General well developed, well nourished, no distress - Eyes PERRL - ENT normal pinna - Neck no masses - Respiratory normal expansion - Cardiovascular Rhythm: regular - Abdomen 3 cm umbilical hernia Abdomen: soft, non tender Results - Labs Abnormal Lab Results - Last 24 Hours (Table) 01/13/22 Range/Units 07:00 POC Glucose (mg/dL) 114 H (70-110) mg/dL Assessment and Plan Assessment: Umbilical hernia. We'll perform laparoscopic robotic-assisted repair.
--- NOTE | 2022-01-13 09:02 | P.OP ---
Date of Procedure: 01/13/22 Preoperative Diagnosis: Umbilical hernia Postoperative Diagnosis: Umbilical hernia Procedure(s) Performed: Transversus abdominis plane block Repair of incarcerated umbilical hernia Partial omentectomy Anesthesia: NELLI Surgeon: John Vasquez Estimated Blood Loss (ml): 5 Pathology: other (Omentum/hernia sac) Condition: stable Disposition: PACU Description of Procedure: The patient was placed on the operating table in the supine position. He received general anesthesia. His abdomen was prepped and draped usual fashion. Using a 5 mm optical trocar under direct visualization the peritoneal cavity was entered in the left upper quadrant. The abdomen was then insufflated. The laparoscope was placed back into the perineal cavity. Next a 8 mm robotic trocar was placed in the left lower quadrant and a 12 mm robotic trocar was placed in the left lateral position. The original 5 mm trocar was exchanged for a 8 mm robotic trocar. The patient's placed in the left side up position. And the patient was docked the robot. The umbilical hernia was visualized. Using hook cautery the peritoneum over the umbilical hernia was excised. Incarcerated omentum and hernia sac were dissected free. The fascial opening was repaired using 0V LOC suture. Next a piece of 11 cm round ventral light ST mesh was placed into the. Cavity and secured with 2 OV lock suture. Next a transversus abdominis plane block was performed with 1% local Xylocaine in 4 quadrants. The patient was undocked the robot. The needles were retrieved. The omentum/hernia sac was retrieved and sent to pathology. The fascia of the 12 mm trocar site was closed with 0 Ethibond suture. Skin was closed interrupted 3-0 Monocryl suture. Dermabond dressings was applied. Patient top procedure well and was sent to recovery room stable condition.
[2022-01-13 09:23] VITALS: TEMP 98.1
[2022-01-13 10:36] VITALS: RESP 16
[2022-01-13 10:54] VITALS: BP 151/90; PULSE 65
--- NOTE | 2022-01-16 07:07 | P.ANPRN ---
Procedure Note - Anesthesia - Nerve Block Performed Bilateral Rectus Abdominis Single Time Out Performed: Yes Date of Procedure: 01/13/22 Procedure Start Time: :15 Procedure Stop Time: : Location of Patient: PreOp Indication: Acute Post-Operative Pain, Requested by Surgeon Sedation Type: Sedate with meaningful contact maintained Preparation: Sterile Prep Position: Supine Needle Types: Pajunk Needle Gauge: 21 Ultrasound used to visualize needle placement: Yes Ultrasound used to observe medication spread: Yes Blood Aspirated: No Pain Paresthesia on Injection Noted: No Resistance on Injection: Normal Image Stored and Saved: Yes Events: Uneventful and Well Tolerated (ropi .5% 20cc plus dexamethasone 4mg given bilaterally)
== END 2022-01-13 11:21 | disposition home or self-care (01) ==
LOC: OR 05:46
PROVIDERS: ATTEND Surgery
DX: K42.0 Umbilical hernia with obstruction, without gangrene (principal); I10 Essential (primary) hypertension; E11.40 Type 2 diabetes mellitus with diabetic neuropathy, unspecified; H91.90 Unspecified hearing loss, unspecified ear; K76.0 Fatty (change of) liver, not elsewhere classified; M19.90 Unspecified osteoarthritis, unspecified site; F32.A Depression, unspecified; F41.9 Anxiety disorder, unspecified; G89.29 Other chronic pain; M54.50 Low back pain, unspecified; I71.9 Aortic aneurysm of unspecified site, without rupture; M62.9 Disorder of muscle, unspecified; Z79.84 Long term (current) use of oral hypoglycemic drugs; Z88.8 Allergy status to other drugs, medicaments and biological substances; Z79.899 Other long term (current) drug therapy; Z87.891 Personal history of nicotine dependence; Z82.49 Family history of ischemic heart disease and other diseases of the circulatory system; Z90.49 Acquired absence of other specified parts of digestive tract
CPT/HCPCS: 64486; 88305; 49653; C1781; J2250; J0330; J1100; J2710; J0690; J2405; J3010; J2795; J2704; J1644; J2001

== ENCOUNTER → 2023-01-27 | Outpatient (CLI) | payer MEDICARE ==
--- NOTE | 2023-01-27 11:35 | XR ---
EXAMINATION TYPE: XR lumbosacral spine min 4V DATE OF EXAM: 01/27/2023 10:56 AM INDICATION: Patient age:Male; 53 years old; Reason for study: Low back pain M54.50; PHH. COMPARISON: CT abdomen pelvis 07/30/2021 TECHNIQUE: Frontal, lateral , bilateral oblique and coned in L5-S1 lateral views of the spine. FINDINGS: There are 5 lumbar type vertebral bodies identified. No evidence of any acute osseous patho logy. No evidence of loss of vertebral body height is seen. There is normal alignment of the lumbar vertebral bodies. No significant disc space narrowing. Lower lumbar facet arthropathy. IMPRESSION: 1. No acute process. 2. Lower lumbar facet arthropathy.
== END | disposition home or self-care (01) ==
LOC: RADXRMAIN 10:33
PROVIDERS: ATTEND Physical Medicine & Rehabilitation
DX: M47.816 Spondylosis without myelopathy or radiculopathy, lumbar region (principal)
CPT/HCPCS: 72110

== ENCOUNTER → 2023-02-23 | Outpatient (CLI) | payer MEDICARE ==
--- NOTE | 2023-02-24 10:32 | CA ---
Transthoracic Echo Report Name: Kamlesh Kerns Age: 53 Gender: M : 1970 Exam Date: 02/23/2023 15:20 Exam Location: [place] [facility] Ht (in): 73 Wt (lb): 280 Ordering Physician: Dale Saucedo MD Attending/Referring Phys: Lewis PHILIP Advertising Sales Manager Maddie Carter [facility] Procedure CPT: Indications: R42 dizziness, R29.6 REPEATED FALLS Cardiac Hx: Technical Quality: Technically difficult study Contrast 1: Total Dose (mL): Contrast 2: Total Dose (mL): MEASUREMENTS (Male / Female) Normal Values 2D ECHO LV Diastolic Diameter PLAX 5.4 cm 4.2 - 5.9 / 3.9 - 5.3 cm LV Systolic Diameter PLAX 3.5 cm IVS Diastolic Thickness 0.8 cm 0.6 - 1.0 / 0.6 - 0.9 cm LVPW Diastolic Thickness 1.0 cm 0.6 - 1.0 / 0.6 - 0.9 cm LV Relative Wall Thickness 0.3 Ascending Aorta Diameter 4.2 cm M-MODE Aortic Root Diameter MM 3.2 cm LA Systolic Diameter MM 4.2 cm LA Ao Ratio MM 1.3 AV Cusp Separation MM 1.7 cm DOPPLER AV Peak Velocity 150.1 cm/s AV Peak Gradient 9.0 mmHg AV Mean Velocity 114.9 cm/s AV Mean Gradient 5.8 mmHg AV Velocity Time Integral 31.8 cm LVOT Peak Velocity 156.8 cm/s LVOT Peak Gradient 9.8 mmHg LVOT Velocity Time Integral 33.3 cm Mitral E Point Velocity 90.1 cm/s Mitral A Point Velocity 88.4 cm/s Mitral E to A Ratio 1.0 MV Deceleration Time 230.9 ms LV E' Lateral Velocity 12.6 cm/s Mitral E to LV E' Lateral Ratio 7.1 LV E' Septal Velocity 7.9 cm/s Mitral E to LV E' Septal Ratio 11.4 TR Peak Velocity 167.4 cm/s TR Peak Gradient 11.2 mmHg Right Atrial Pressure 3.0 mmHg Pulmonary Artery Systolic Pressu 14.2 mmHg Right Ventricular Systolic Press 14.2 mmHg FINDINGS Left Ventricle Left ventricular wall thickness normal. Left ventricular cavity size normal. Normal left ventricular systolic function with no obvious regional wall motion abnormalities. Left ventricular ejection fraction is estimated at 55-60%. Right Ventricle Severe right ventricular dilatation. Right Atrium Mild right atrial dilatation. Left Atrium Left atrial size at the upper limits of normal. Mitral Valve Structurally normal mitral valve. No mitral regurgitation. Aortic Valve Trileaflet aortic valve. Focal thickening of the aortic valve cusps. No aortic regurgitation. Tricuspid Valve Tricuspid valve not well visualized. Trace tricuspid regurgitation. Pulmonic Valve Pulmonic valve not well visualized. Pericardium No pericardial effusion. Echo free space anterior to the right ventricle likely represents a fat pad. Aorta Normal size aortic root and mildly dilated proximal ascending aorta. CONCLUSIONS Normal LV size and function Enlargement of the right-sided chambers Previewed by: Dr. Jayson Fontaine MD (Electronically Signed) Final Date: 24 February 2023 10:31
== END | disposition home or self-care (01) ==
LOC: RADECHMAIN 15:13
PROVIDERS: ATTEND Family Medicine
DX: R29.6 Repeated falls (principal); I51.7 Cardiomegaly
CPT/HCPCS: 93306

== ENCOUNTER → 2023-02-25 | Outpatient (CLI) | payer MEDICARE | END | disposition home or self-care (01) | LOC: RADECHMAIN 07:55 | PROVIDERS: ATTEND Family Medicine | DX: Z53.9 Procedure and treatment not carried out, unspecified reason (principal) ==

== ENCOUNTER → 2023-05-08 | Outpatient (CLI) | payer MEDICARE ==
--- NOTE | 2023-05-08 12:38 | MR ---
EXAMINATION TYPE: MR lumbar spine wo con DATE OF EXAM: 05/08/2023 9:07 AM CLINICAL INDICATION:Male, 53 years old with history of M48.07 spinal stenosis; PHH, Lower back pain, BLE radiculopathy. COMPARISON: Radiographs 01/27/2023. TECHNIQUE: Multi planar, multi sequence imaging was performed utilizing: T1-weighted, T2-weighted, a nd turbo inversion recovery imaging of the lumbar spine. IV Contrast: cc . (None if empty) FINDINGS: Alignment: The lumbar vertebral bodies have preserved heights and alignment. Cord: The conus medullaris and the distal spinal cord appear unremarkable with regards to their signa l intensity and morphology. Bones/Discs: Mild degeneration changes throughout the spine with osteophyte formation and facet joint arthropathy. Disc desiccation at L5-S1. T12-L1: Central disc protrusion without significant spinal canal or neural foraminal stenosis. L1-L2: No evidence of significant spinal canal stenosis or neural foraminal stenosis. L2-L3: No evidence of significant spinal canal stenosis or neural foraminal stenosis. L3-L4: No evidence of significant spinal canal stenosis or neural foraminal stenosis. L4-L5: Disc bulge and facet joint arthropathy result in mild spinal canal and mild bilateral neural f oraminal stenosis. L5-S1: The disc is rounded posterior morphology without significant spinal canal stenosis. Facet join t arthropathy with mild bilateral neural foraminal stenosis. No significant spinal canal or neural foraminal stenosis in the remainder of the visualized levels. Other findings: None. IMPRESSION: 1. No definitive evidence for significant spinal canal stenosis. 2. Mild degeneration changes with no significant neural foraminal stenosis. 3. T12-L1 central disc protrusion without significant spinal canal or neural foraminal stenosis.
== END | disposition home or self-care (01) ==
LOC: RADMRIMAIN 08:26
PROVIDERS: ATTEND Neurological Surgery
DX: M47.26 Other spondylosis with radiculopathy, lumbar region (principal); M51.14 Intervertebral disc disorders with radiculopathy, thoracic region; M48.07 Spinal stenosis, lumbosacral region
CPT/HCPCS: 72148